=== PATIENT | female | born 1985 | race Caucasian/White ===

== ENCOUNTER 2023-05-09 12:16 | Emergency (ER) | payer MEDICAID, SELFPAY ==
[~2023-05-09] VITALS: Ht 167.6 cm; Wt 84.1 kg
[2023-05-09 12:21] VITALS: TEMP 98.5
[2023-05-09 12:29] LABS: COVID AG,FIA SOURCE NASAL SWAB
[2023-05-09 13:14] LABS: INFLUENZA TYPE A NEGATIVE FOR TYPE A (NEGATIVE); INFLUENZA TYPE B NEGATIVE FOR TYPE B (NEGATIVE)
[2023-05-09 13:22] LABS: SARS-COV2 (COVID) ANTIGEN,FIA Positive (Negative)
[2023-05-09] MEDS ORDERED: NIRM1TAB4 PO (13:45)
[2023-05-09 13:52] VITALS: BP 116/63; PULSE 99; RESP 18
== END 2023-05-09 13:58 | disposition home or self-care (01) ==
LOC: EMS 12:38
DX: U07.1 COVID-19 (principal); E03.9 Hypothyroidism, unspecified; F17.210 Nicotine dependence, cigarettes, uncomplicated; Z98.51 Tubal ligation status; Z88.2 Allergy status to sulfonamides
CPT/HCPCS: 99283; 87426; 87804; C9803

== ENCOUNTER 2024-03-01 22:52 | Emergency (ER) | payer OTHER ==
[~2024-03-01] VITALS: Ht 167.6 cm; Wt 102.3 kg
[~2024-03-01 22:52] MED LIST: LEVE-71 PO; LEVO50TA11 PO
[2024-03-01 22:55] VITALS: BP 142/87; PULSE 97; RESP 16; TEMP 98.2
[2024-03-01] MEDS ORDERED: ACET-3385 PO (23:22)
[2024-03-01] MEDS ORDERED: IBUP-1492 PO (23:22)
[2024-03-01] MEDS: IBUPROFEN 600 MG TABLET PO ONE (23:26)
== END 2024-03-01 23:45 | disposition home or self-care (01) ==
LOC: EMS 22:52
DX: S63.501A Unspecified sprain of right wrist, initial encounter (principal); E03.9 Hypothyroidism, unspecified; F17.210 Nicotine dependence, cigarettes, uncomplicated; Z98.51 Tubal ligation status; Z88.2 Allergy status to sulfonamides; W19.XXXA Unspecified fall, initial encounter; Y93.89 Activity, other specified; Y92.89 Other specified places as the place of occurrence of the external cause; Y99.8 Other external cause status
CPT/HCPCS: 99284; 73110-TC; 73130-TC; Z7502; Z7610

== ENCOUNTER 2024-07-26 17:47 | Emergency (ER) | payer OTHER ==
[~2024-07-26] VITALS: Ht 165.1 cm; Wt 84.0 kg
[~2024-07-26 17:47] MED LIST changes: +ACET-3385 PO; +IBUP-1492 PO; -LEVE-71 PO
[2024-07-26 18:40] LABS: BASOPHILS % (AUTO) 0.7 % (0.0-2.0); EOSINOPHILS % (AUTO) 2.8 % (1.0-6.0); HEMATOCRIT 37.3 % (36-46); HEMOGLOBIN 12.3 g/dL (12.0-16.0); LYMPHOCYTES # (AUTO) 1.9 K/uL (1.0-4.8); LYMPHOCYTES % (AUTO) 28.1 % (22.0-44.0); MEAN CORPUSCULAR HEMOGLOBIN 28.5 pg (26.0-34.0); MEAN CORPUSCULAR VOLUME 87 fL (80-100); MONOCYTES # (AUTO) 0.7 K/uL (0.1-1.0); MONOCYTES % (AUTO) 10.5 % (2.0-9.0); NEUTROPHILS # (AUTO) 3.8 K/uL (1.8-7.7); NEUTROPHILS % (AUTO) 57.9 % (40.0-70.0); PLATELET COUNT (AUTO) 402 K/uL (150-450); RED BLOOD CELL COUNT(AUTO) 4.31 MIL/uL (4.00-5.20); RED CELL DISTRIBUTION WIDTH 14.5 % (11.5-14.5); WHITE BLOOD COUNT (AUTO) 6.6 K/uL (4.5-11.0)
[2024-07-26 18:56] LABS: ANION GAP 11 mmol/L (8-16); CALCIUM, TOTAL 8.8 mg/dL (8.8-10.5); CARBON DIOXIDE 30 mmol/L (22-29); CHLORIDE 100 mmol/L (98-107); CREATININE 0.77 mg/dL (0.60-1.30); GLOMERULAR FILTR. RATE CALC > 60 mL/min (>60); GLUCOSE,RANDOM 87 mg/dL (70-110); POTASSIUM 3.9 mmol/L (3.5-5.1); SODIUM SERUM 141 mmol/L (136-145); UREA NITROGEN, BLOOD 10 mg/dL (7-18)
[2024-07-26 19:02] LABS: ALANINE AMINOTRANSFERASE 17 U/L (12-78); ALBUMIN 3.4 g/dL (3.4-5.0); ALKALINE PHOSPHATASE 64 U/L (46-116); ASPARTATE AMINOTRANSFERASE 14 U/L (15-37); BILIRUBIN,TOTAL 0.4 mg/dL (0.1-1.0); LIPASE 31 U/L (16-77); TOTAL PROTEIN, SERUM 7.2 g/dL (6.4-8.2)
[2024-07-26] MEDS ORDERED: IOHEXOL 350 MG/ML 100 ML VIAL ONE (19:44)
[2024-07-26] MEDS ORDERED: SODIUM CHLORIDE 0.9% 100 ML ONE (19:44)
[2024-07-26] MEDS: KETOROLAC TROMETHAMINE 30 MG/ML VIAL IVP ONE (20:03)
[2024-07-26] MEDS: ACETAMINOPHEN 500 MG TABLET PO ONE (20:05)
[2024-07-26 21:20] LABS: APPEARANCE,URINE CLEAR (CLEAR); BILIRUBIN,URINE NEGATIVE (NEGATIVE); COLOR,URINE LIGHT YELLOW (YELLOW); GLUCOSE, URINE (UA) NEGATIVE (NEGATIVE); KETONES,URINE NEGATIVE (NEGATIVE); LEUKOCYTE ESTERASE ,URINE NEGATIVE (NEGATIVE); NITRATE,URINE NEGATIVE (NEGATIVE); OCCULT BLOOD,URINE NEGATIVE (NEGATIVE); PH,URINE 6.5 (5.0-8.0); PROTEIN,URINE NEGATIVE (NEGATIVE); SPECIFIC GRAVITIY, URINE 1.023 (1.003-1.030); UROBILINOGEN,URINE <=1.0 mg/dL (<=1.0)
[2024-07-26] MEDS ORDERED: DOCUSATE SODIUM 100 MG CAPSULE PO ONE (21:45)
[2024-07-26] MEDS ORDERED: DOCU-385 PO (21:47)
[2024-07-26 22:00] VITALS: BP 124/79; PULSE 87; RESP 16; TEMP 97.3; O2SAT 98
== END 2024-07-27 00:35 | disposition home or self-care (01) ==
LOC: EMS 17:47
DX: K59.00 Constipation, unspecified (principal); K62.3 Rectal prolapse; E03.9 Hypothyroidism, unspecified; F17.210 Nicotine dependence, cigarettes, uncomplicated; Z88.2 Allergy status to sulfonamides; Z98.51 Tubal ligation status
CPT/HCPCS: 99285; 74177; 96374; 80048; 80076; 81003; 83690; 84703; 85025; 36415; Q9967; J1885; J7050